=== PATIENT | female | born 1960 | race Caucasian/White ===

== ENCOUNTER 2017-12-03 12:30 | Observation (INO) | payer SELFPAY ==
[~2017-12-03] VITALS: Ht 180.3 cm; Wt 76.0 kg
[~2017-12-03 12:30] MED LIST: IRONCAP2 PO; ORTH0.35 PO; VENL75TA91 PO
[2017-12-03 12:53] VITALS: BP 105/59; PULSE 107; RESP 18; TEMP 98.8; O2SAT 95
--- NOTE | 2017-12-03 13:36 | RADRPT ---
EXAM DATE: 12/03/2017 1:29 PM EDT AGE/SEX: 57 years / Female INDICATIONS: Congestion and coughing. CLINICAL DATA: This is the patient's initial encounter. Patient reports that signs and symptoms have been present for 4 - 6 days and indicates a pain score of 0/10. MEDICAL/SURGICAL HISTORY: None. None. COMPARISON: No prior [facility] exams available for comparison. FINDINGS: There is infiltrate in the right lower lobe. There is no significant associated effusion. Left lung i s grossly clear. There is baseline hyperinflation consistent with COPD. Mild apical pleural thickenin g. Cardiac contours are grossly satisfactory. Thoracic skeleton is intact. CONCLUSION: Right lower lobe infiltrate Electronically signed by: Damian Vigil MD 12/03/2017 1:35 PM EDT
[2017-12-03 13:40] LABS: AUTOMATED NEUTROPHIL # 6.2 TH/MM3 (1.8-7.7); BASOPHIL % 0.4 % (0.0-2.0); EOSINOPHIL % 0.3 % (0.0-4.0); HEMATOCRIT 46.4 % (35.0-46.0); HEMOGLOBIN 15.4 GM/DL (11.6-15.3); LYMPH % 10.9 % (9.0-44.0); LYMPHOCYTE # 0.9 TH/MM3 (1.0-4.8); MEAN CELL VOLUME 95.5 FL (80.0-100.0); MEAN CORPUSCULAR HEMOGLOBIN 31.7 PG (27.0-34.0); MEAN CORPUSCULAR HGB CONC 33.2 % (32.0-36.0); MEAN PLATELET VOLUME 9.2 FL (7.0-11.0); MONO % 11.7 % (0.0-8.0); MONOCYTE # 0.9 TH/MM3 (0-0.9); NEUT % 76.7 % (16.0-70.0); PLATELET COUNT 221 TH/MM3 (150-450); RED BLOOD COUNT 4.86 MIL/MM3 (4.00-5.30); RED CELL DISTRIBUTION WIDTH 13.6 % (11.6-17.2); WHITE BLOOD COUNT 8.1 TH/MM3 (4.0-11.0)
[2017-12-03 13:47] LABS: BICARBONATE 30.2 MEQ/L (21.0-32.0); CALCIUM 9.5 MG/DL (8.5-10.1); CREATININE 1.08 MG/DL (0.50-1.00)
[2017-12-03] MEDS ORDERED: LEVOFLOXACIN 500 MG PREMIX INJ 100 ML IV ONE (16:45)
[2017-12-03] MEDS ORDERED: SODIUM CHLOR 0.9% 1000 ML INJ 1,000 ML IV ONE ×3 (16:45→18:30)
[2017-12-03] MEDS ORDERED: RESP: ALBUTEROL 2.5 MG/IPRATROPIUM 0.5 MG NEB (SCH) NEB ONE (16:45)
--- NOTE | 2017-12-03 16:46 | PD ---
HPI Chief Complaint: Cold / Flu Symptoms Time Seen by Provider: 16:30 Travel History International Travel<30 days: No Contact w/Intl Traveler<30days: No Traveled to known affect area: No History of Present Illness HPI 57-year-old female presents to the emergency room for evaluation of mildly productive cough for the past 4 days. Patient states at onset of symptoms she felt feverish and had body aches. She thought she was getting the flu. The symptoms kind of resolved but the cough has persisted. Patient has associated pleuritic chest pain. She also reports bilateral ear pain especially with swallowing. She has been taking multiple [id number] medications with mild to moderate relief in symptoms. No objective fevers. She has history of ulcerative colitis but denies any other significant medical history. She denies history of PE or DVT. PFSH Past Medical History Anemia: Yes Depression: Yes Cancer: Yes (SKIN CA REMOVAL NECK) Cardiovascular Problems: Yes Cerebrovascular Accident: No Diminished Hearing: No Endocrine: No Gastrointestinal Disorders: Yes (HX OF ULCERATIVE COLITIS) Genitourinary: No Immune Disorder: No Musculoskeletal: Yes (MUSCLE SPASMS) Neurologic: Yes Reproductive: Yes (UTERINE FIBROIDS) Respiratory: No Immunizations Current: No PNEUMOCCOCAL Vaccine (Year): 2 ?: Not : 1 Para: 1 Miscarriage: 0 : 0 Dilation and Curettage (D&C): Yes Past Surgical History Section: Yes Gynecologic Surgery: Yes (, CERVICAL POLYPS, D & C) Other Surgery: Yes Social History Alcohol Use: Yes (OCC) Tobacco Use: Yes (1/2PPD) Substance Use: No Allergies-Medications (Allergen,Severity, Reaction): Coded Allergies: morphine (Unverified Allergy, Intermediate, ITCHING, REDNESS, HIVES, ) Reported Meds & Prescriptions Reported Meds & Active Scripts Active Review of Systems Except as stated in HPI: all other systems reviewed are Neg Physical Exam Narrative GENERAL: Well-nourished, well-developed female no acute distress. Afebrile. Ambulatory. SKIN: Focused skin assessment warm/dry. HEAD: Normocephalic. EYES: No scleral icterus. No injection or drainage. NECK: Supple, trachea midline. No JVD or lymphadenopathy. CARDIOVASCULAR: Regular rate and rhythm without murmurs, gallops, or rubs. RESPIRATORY: Breath sounds equal bilaterally. No accessory muscle use. Bilateral expiratory wheezes. Rhonchi of the right lower lobe. Data Data Last Documented VS Vital Signs Date Time Temp Pulse Resp B/P (MAP) Pulse Ox O2 Delivery O2 Flow Rate FiO2 12/03/17 18:22 104 21 97 12/03/17 16:03 Room Air 12/03/17 12:53 98.8 105/59 (74) Orders Orders Complete Blood Count With Diff (12/03/17 12:55) Basic Metabolic Panel (Bmp) (12/03/17 12:55) Chest, Pa & Lat (12/03/17 12:55) Lactic Acid (12/03/17 12:55) Sodium Chlor 0.9% 1000 Ml Inj (Ns 1000 M (12/03/17 16:45) Levofloxacin 500 Mg Premix Inj (Levaquin (12/03/17 16:45) Albuterol-Ipratropium Neb (Duoneb Neb) (12/03/17 16:45) Sodium Chlor 0.9% 1000 Ml Inj (Ns 1000 M (12/03/17 18:30) Sodium Chlor 0.9% 1000 Ml Inj (Ns 1000 M (12/03/17 18:30) Methylprednisolone So Succ Inj (Solumedr (12/03/17 18:30) Admit Order (Ed Use Only) (12/03/17 ) Real Estate Legal Secretary / Telemetry SAMANTHA.Q8H (12/03/17 19:38) Vital Signs (Adult) Q4H (12/03/17 19:38) Activity Oob With Assistance (12/03/17 19:38) Albuterol-Ipratropium Neb (Duoneb Neb) (12/03/17 19:45) Budeson-Formot 160-4.5 Mcg Inh (Symbicor (12/03/17 21:00) Guaifenesin Er (Mucinex Er) (12/03/17 21:00) Levofloxacin 750 Mg Premix Inj (Levaquin (12/04/17 21:00) Methylprednisolone So Succ Inj (Solumedr (12/04/17 00:00) Place In Observation (12/03/17 ) Vital Signs (Adult) Q4H (12/03/17 19:41) Activity Oob Ad Gissell (12/03/17 19:41) Intake + Output SAMANTHA.QSHIFT (12/03/17 19:41) Diet Regular Basic (12/04/17 Breakfast) Sodium Chloride 0.9% Flush (Ns Flush) (12/03/17 19:45) Sodium Chloride 0.9% Flush (Ns Flush) (12/03/17 21:00) Metoclopramide Inj (Reglan Inj) (12/03/17 19:45) Comprehensive Metabolic Panel (12/04/17 06:00) Complete Blood Count With Diff (12/04/17 06:00) Scd Bilateral/Knee High SAMANTHA.BID (12/03/17 19:41) Eugenio Bilateral/Knee High SAMANTHA.QSHIFT (12/03/17 19:43) Acetaminophen (Tylenol) (12/03/17 19:45) Acetamin-Hydrocod 325-5 Mg ([place] 5-325 (12/03/17 19:45) Acetamin-Hydrocod 325-10 Mg ([place] 10-32 (12/03/17 19:45) Docusate Sodium-Senna (Paula-Colace) (12/03/17 21:00) Magnesium Hydroxide Liq (Milk Of Magnesi (12/03/17 19:45) Sennosides (Senokot) (12/03/17 19:45) Bisacodyl Supp (Dulcolax Supp) (12/03/17 19:45) Lactulose Liq (Lactulose Liq) (12/03/17 19:45) Labs Laboratory Tests Test 12/03/17 13:13 White Blood Count 8.1 TH/MM3 Red Blood Count 4.86 MIL/MM3 Hemoglobin 15.4 GM/DL Hematocrit 46.4 % Mean Corpuscular Volume 95.5 FL Mean Corpuscular Hemoglobin 31.7 PG Mean Corpuscular Hemoglobin Concent 33.2 % Red Cell Distribution Width 13.6 % Platelet Count 221 TH/MM3 Mean Platelet Volume 9.2 FL Neutrophils (%) (Auto) 76.7 % Lymphocytes (%) (Auto) 10.9 % Monocytes (%) (Auto) 11.7 % Eosinophils (%) (Auto) 0.3 % Basophils (%) (Auto) 0.4 % Neutrophils # (Auto) 6.2 TH/MM3 Lymphocytes # (Auto) 0.9 TH/MM3 Monocytes # (Auto) 0.9 TH/MM3 Eosinophils # (Auto) 0.0 TH/MM3 Basophils # (Auto) 0.0 TH/MM3 CBC Comment DIFF FINAL Differential Comment Blood Urea Nitrogen 18 MG/DL Creatinine 1.08 MG/DL Random Glucose 100 MG/DL Calcium Level 9.5 MG/DL Sodium Level 140 MEQ/L Potassium Level 4.0 MEQ/L Chloride Level 102 MEQ/L Carbon Dioxide Level 30.2 MEQ/L Anion Gap 8 MEQ/L Estimat Glomerular Filtration Rate 53 ML/MIN Lactic Acid Level 1.2 mmol/L [facility] Medical Decision Making Medical Screen Exam Complete: Yes Emergency Medical Condition: Yes Medical Record Reviewed: Yes Differential Diagnosis Pneumonia, upper respiratory infection, influenza Narrative Course 57-year-old female presents to the emergency room for evaluation of mildly productive cough for the past 4 days. At onset she felt feverish with body aches but the symptoms have subsided. Physical exam is reassuring. Patient resting comfortably in bed. She is slightly tachycardic in the low 100s. Pulse ox is 96% on room air. She is a smoker but has not smoked in the past 4 days. Patient has bilateral wheezes with rhonchi in the right lower lung field. CBC is unremarkable. CMP shows mild elevation of creatinine of 1.08. Lactic acid is 1.2. Chest x-ray shows right lower lobe infiltrate. Patient was given 1 L of fluids, IV Levaquin, and 2 duo nebs in the emergency room. She reports feeling shaky after the DuoNeb's. Lung exam reveals significant improvement in the wheezing. Patient remained tachycardic after the fluids. She was then given 2 more liters of fluids and Solu-Medrol. Patient will be admitted for right lower lobe pneumonia with sepsis. Sepsis Criteria SIRS Criteria (2 or more): Heart rate over 90, RR > 20 or PaCO2 < 32 Sepsis Criteria (SIRS+source): Infect source susp/known Diagnosis Primary Impression: Right lower lobe pneumonia Qualified Codes: J18.1 - Lobar pneumonia, unspecified organism Admitting Information Admitting Physician Requests: Admit Condition: Stable Aditi Martinez December 03, 2017 16:46
[2017-12-03] MEDS ORDERED: LEVA500T33 PO (17:56)
[2017-12-03] MEDS ORDERED: VENTAER INH (17:57)
[2017-12-03] MEDS ORDERED: BENZ100 PO (17:57)
[2017-12-03] MEDS ORDERED: methylPREDNISolone SOD SUCC 125 MG/2 ML VIAL IV PUSH ONE (18:30)
--- NOTE | 2017-12-03 19:44 | HHI.HP ---
[facility] No Primary Care Physician Admission Diagnosis Right Lung PNA; Dyspnea Diagnoses: (1) PNA (pneumonia) Diagnosis: Principal (2) COPD (chronic obstructive pulmonary disease) Diagnosis: Principal (3) Tobacco abuse Diagnosis: Principal Travel History International Travel<30 Days: No Contact w/Intl Traveler <30 Da: No Traveled to Known Affected Are: No History of Present Illness This is a 57-year-old female with a PMH of Ulcerative Colitis and Tobacco Abuse who presented to ER with complaints of SOB, wheezing and cough x4 days. Notes subjective fever/chills at home but did not take her temp. Has not been on any antibiotics or treatment for symptoms. States she's been taking cough syrup w/ no improvement. Notes productive cough w/ yellow-colored sputum. Today w/ worsening SOB and wheezing. On arrival, BP 105/59, HR 107, O2 sat 95% on RA, Afebrile. CBC unremarkable. Creatinine 1.08, previously 0.67 on 08/29/2014. CXR w/ RLL infiltrate. S/p Levaquin, Solu-Medrol and DuoNeb w/ some improvement however persistent SOB and wheezing. Review of Systems Except as stated in HPI: all other systems reviewed are Neg ROS: 14 point review of systems otherwise negative. Past Family Social History Past Medical History PMH: Ulcerative Colitis and Tobacco Abuse Past Surgical History PAST SURGICAL HISTORY: , D&C Allergies: Coded Allergies: morphine (Unverified Allergy, Intermediate, ITCHING, REDNESS, HIVES, ) Family History PAST FAMILY HISTORY: Reviewed. No h/o DM or CAD Social History PAST SOCIAL HISTORY: Occasional alcohol. Smokes 1/2ppd. H/o Cocaine Abuse. Physical Exam Vital Signs Vital Signs Date Time Temp Pulse Resp B/P (MAP) Pulse Ox O2 Delivery O2 Flow Rate FiO2 12/03/17 18:22 104 21 97 12/03/17 16:03 96 Room Air 12/03/17 12:53 98.8 107 18 105/59 (74) 95 Physical Exam PE: GENERAL: Pleasant middle-aged white female in no acute distress. Some dyspnea w / speech. HEENT: PERRLA, EOMI. No scleral icterus or conjunctival pallor. No lid lag or facial droop. CARDIOVASCULAR: Regular rate and rhythm. No obvious murmurs to auscultation. No chest tenderness to palpation. RESPIRATORY: No obvious rhonchi, occasional wheezing. Clear to auscultation. Breath sounds equal bilaterally. GASTROINTESTINAL: Abdomen soft, non-tender, nondistended. BS normal. MUSCULOSKELETAL: Extremities without clubbing, cyanosis, or edema. No obvious deformities. NEUROLOGICAL: Awake, alert and oriented x4. No focal neurologic deficits. Moving both upper and lower extremities spontaneously. Laboratory Laboratory Tests Test 12/03/17 13:13 White Blood Count 8.1 Red Blood Count 4.86 Hemoglobin 15.4 Hematocrit 46.4 Mean Corpuscular Volume 95.5 Mean Corpuscular Hemoglobin 31.7 Mean Corpuscular Hemoglobin Concent 33.2 Red Cell Distribution Width 13.6 Platelet Count 221 Mean Platelet Volume 9.2 Neutrophils (%) (Auto) 76.7 Lymphocytes (%) (Auto) 10.9 Monocytes (%) (Auto) 11.7 Eosinophils (%) (Auto) 0.3 Basophils (%) (Auto) 0.4 Neutrophils # (Auto) 6.2 Lymphocytes # (Auto) 0.9 Monocytes # (Auto) 0.9 Eosinophils # (Auto) 0.0 Basophils # (Auto) 0.0 CBC Comment DIFF FINAL Differential Comment Blood Urea Nitrogen 18 Creatinine 1.08 Random Glucose 100 Calcium Level 9.5 Sodium Level 140 Potassium Level 4.0 Chloride Level 102 Carbon Dioxide Level 30.2 Anion Gap 8 Estimat Glomerular Filtration Rate 53 Lactic Acid Level 1.2 Result Diagram: 12/03/17 1313 12/03/17 1313 Caprini VTE Risk Assessment Caprini VTE Risk Assessment: No/Low Risk (score <= 1) Caprini Risk Assessment Model Point Value = 1 Point Value = 2 Point Value = 3 Point Value = 5 Age 41-60 Minor surgery BMI > 25 kg/m2 Swollen legs Varicose veins or History of unexplained or recurrent spontaneous Oral contraceptives or hormone replacement Sepsis (< 1 month) Serious lung disease, including pneumonia (< 1 month) Abnormal pulmonary function Acute myocardial infarction Congestive heart failure (< 1 month) History of inflammatory bowel disease Medical patient at bed rest Age 61-74 Arthroscopic surgery Major open surgery (> 45 min) Laparoscopic surgery (> 45 min) Malignancy Confined to bed (> 72 hours) Immobilizing plaster cast Central venous access Age >= 75 History of VTE Family history of VTE Factor V Leiden Prothrombin [id number] Lupus anticoagulant Anticardiolipin antibodies Elevated serum homocysteine Heparin-induced thrombocytopenia Other congenital or acquired thrombophilia Stroke (< 1 month) Elective arthroplasty Hip, pelvis, or leg fracture Acute spinal cord injury (< 1 month) Prophylaxis Regimen Total Risk Factor Score Risk Level Prophylaxis Regimen 0-1 Low Early ambulation 2 Moderate Order ONE of the following: *Sequential Compression Device (SCD) *Heparin 5000 units SQ BID 3-4 Higher Order ONE of the following medications: *Heparin 5000 units SQ TID *Enoxaparin/Lovenox 40 mg SQ daily (WT < 150 kg, CrCl > 30 mL/min) *Enoxaparin/Lovenox 30 mg SQ daily (WT < 150 kg, CrCl > 10-29 mL/min) *Enoxaparin/Lovenox 30 mg SQ BID (WT < 150 kg, CrCl > 30 mL/min) AND/OR *Sequential Compression Device (SCD) 5 or more Highest Order ONE of the following medications: *Heparin 5000 units SQ TID (Preferred with Epidurals) *Enoxaparin/Lovenox 40 mg SQ daily (WT < 150 kg, CrCl > 30 mL/min) *Enoxaparin/Lovenox 30 mg SQ daily (WT < 150 kg, CrCl > 10-29 mL/min) *Enoxaparin/Lovenox 30 mg SQ BID (WT < 150 kg, CrCl > 30 mL/min) AND *Sequential Compression Device (SCD) Assessment and Plan Problem List: (1) PNA (pneumonia) ICD Code: J18.9 - Pneumonia, unspecified organism (2) COPD (chronic obstructive pulmonary disease) ICD Code: J44.9 - Chronic obstructive pulmonary disease, unspecified (3) Tobacco abuse ICD Code: Z72.0 - Tobacco use Assessment and Plan A/P: 1. PNA: SOB/productive cough x4 days, CXR w/ RLL infiltrate, images reviewed by me. Afebrile, no leukocytosis. S/p Levaquin in ER, continue w/ IV Abx, DuoNeb prn 2. COPD: H/o long-term tobacco abuse, +hyperinflation on review of CXR, + wheezing on exam, will continue w/ Solu-Medrol, DuoNeb, Symbicort, Mucinex. Monitor O2. 3. Tobacco Abuse: Pt counselled. NicoDerm prn if needed. 4. DVT Prophylaxis: SCD/Teds 5. Social work for d/c planning as needed. 6. Case discussed w/ ER physician at length, labs/records/imaging reviewed by me. Ida Polk MD December 03, 2017 19:44
[2017-12-03] MEDS ORDERED: LACTULOSE SYRUP 20 GM/30 ML CUP PO PRN (19:45)
[2017-12-03] MEDS ORDERED: METOCLOPRAMIDE HCL 10 MG/2 ML VIAL IV PUSH PRN (19:45)
[2017-12-03] MEDS ORDERED: SODIUM CHLORIDE 0.9% FLUSH 10 ML FLUSH IV FLUSH PRN (19:45)
[2017-12-03] MEDS ORDERED: RESP: ALBUTEROL 2.5 MG/IPRATROPIUM 0.5 MG NEB (PRN) NEB (19:45)
[2017-12-03] MEDS ORDERED: BISACODYL 10 MG SUPP RECTAL PRN (19:45)
[2017-12-03] MEDS ORDERED: MAGNESIUM HYDROXIDE SUSP 30 ML CUP PO PRN (19:45)
[2017-12-03] MEDS ORDERED: SENNOSIDES 8.6 MG TAB PO PRN (19:45)
--- NOTE | 2017-12-03 19:58 | PD ---
Data Data Last Documented VS Vital Signs Date Time Temp Pulse Resp B/P (MAP) Pulse Ox O2 Delivery O2 Flow Rate FiO2 12/03/17 18:22 104 21 97 12/03/17 16:03 Room Air 12/03/17 12:53 98.8 105/59 (74) Orders Orders Complete Blood Count With Diff (12/03/17 12:55) Basic Metabolic Panel (Bmp) (12/03/17 12:55) Chest, Pa & Lat (12/03/17 12:55) Lactic Acid (12/03/17 12:55) Sodium Chlor 0.9% 1000 Ml Inj (Ns 1000 M (12/03/17 16:45) Levofloxacin 500 Mg Premix Inj (Levaquin (12/03/17 16:45) Albuterol-Ipratropium Neb (Duoneb Neb) (12/03/17 16:45) Sodium Chlor 0.9% 1000 Ml Inj (Ns 1000 M (12/03/17 18:30) Sodium Chlor 0.9% 1000 Ml Inj (Ns 1000 M (12/03/17 18:30) Methylprednisolone So Succ Inj (Solumedr (12/03/17 18:30) Admit Order (Ed Use Only) (12/03/17 ) Automotive Worker Foreman / Telemetry SAMANTHA.Q8H (12/03/17 19:38) Vital Signs (Adult) Q4H (12/03/17 19:38) Activity Oob With Assistance (12/03/17 19:38) Albuterol-Ipratropium Neb (Duoneb Neb) (12/03/17 19:45) [place]-Kat[place]ot 160-4.5 Mcg Inh (Symbicor (12/03/17 21:00) Guaifenesin Er (Mucinex Er) (12/03/17 21:00) Levofloxacin 750 Mg Premix Inj (Levaquin (12/04/17 21:00) Methylprednisolone So Succ Inj (Solumedr (12/04/17 00:00) Place In Observation (12/03/17 ) Vital Signs (Adult) Q4H (12/03/17 19:41) Activity Oob Ad Gissell (12/03/17 19:41) Intake + Output SAMANTHA.QSHIFT (12/03/17 19:41) Diet Regular Basic (12/04/17 Breakfast) Sodium Chloride 0.9% Flush (Ns Flush) (12/03/17 19:45) Sodium Chloride 0.9% Flush (Ns Flush) (12/03/17 21:00) Metoclopramide Inj (Reglan Inj) (12/03/17 19:45) Comprehensive Metabolic Panel (12/04/17 06:00) Complete Blood Count With Diff (12/04/17 06:00) Scd Bilateral/Knee High SAMANTHA.BID (12/03/17 19:41) Eugenio Bilateral/Knee High SAMANTHA.QSHIFT (12/03/17 19:43) Acetaminophen (Tylenol) (12/03/17 19:45) Acetamin-Hydrocod 325-5 Mg ([place] 5-325 (12/03/17 19:45) Acetamin-Hydrocod 325-10 Mg ([place] 10-32 (12/03/17 19:45) Docusate Sodium-Senna (Paula-Colace) (12/03/17 21:00) Magnesium Hydroxide Liq (Milk Of Magnesi (12/03/17 19:45) Sennosides (Senokot) (12/03/17 19:45) Bisacodyl Supp (Dulcolax Supp) (12/03/17 19:45) Lactulose Liq (Lactulose Liq) (12/03/17 19:45) Labs Laboratory Tests Test 12/03/17 13:13 White Blood Count 8.1 TH/MM3 Red Blood Count 4.86 MIL/MM3 Hemoglobin 15.4 GM/DL Hematocrit 46.4 % Mean Corpuscular Volume 95.5 FL Mean Corpuscular Hemoglobin 31.7 PG Mean Corpuscular Hemoglobin Concent 33.2 % Red Cell Distribution Width 13.6 % Platelet Count 221 TH/MM3 Mean Platelet Volume 9.2 FL Neutrophils (%) (Auto) 76.7 % Lymphocytes (%) (Auto) 10.9 % Monocytes (%) (Auto) 11.7 % Eosinophils (%) (Auto) 0.3 % Basophils (%) (Auto) 0.4 % Neutrophils # (Auto) 6.2 TH/MM3 Lymphocytes # (Auto) 0.9 TH/MM3 Monocytes # (Auto) 0.9 TH/MM3 Eosinophils # (Auto) 0.0 TH/MM3 Basophils # (Auto) 0.0 TH/MM3 CBC Comment DIFF FINAL Differential Comment Blood Urea Nitrogen 18 MG/DL Creatinine 1.08 MG/DL Random Glucose 100 MG/DL Calcium Level 9.5 MG/DL Sodium Level 140 MEQ/L Potassium Level 4.0 MEQ/L Chloride Level 102 MEQ/L Carbon Dioxide Level 30.2 MEQ/L Anion Gap 8 MEQ/L Estimat Glomerular Filtration Rate 53 ML/MIN Lactic Acid Level 1.2 mmol/L [facility] Medical Record Reviewed: Yes Supervised Visit with GENIE: Yes Narrative Course I, Dr. Tiwari, have reviewed the advance practice practitioner's documentation and am in agreement, met with the patient face to face, made the diagnosis, and the medical decision making was done by me. *My assessment and Findings: CBC & BMP Diagram 12/03/17 13:13 Calcium Level 9.5 Last Impressions Chest X-Ray 12/03/17 1255 Signed Impressions: CONCLUSION: Right lower lobe infiltrate Pt with R lung pna and tachycardia. Admission for IV abx and oxygen as needed. Mild tachypnea observed right ED stay. The patient is able speak sentences. She was able to ambulate to the bathroom and back. She received 3 L of saline and the pulse remained at about 105. Pt also received duonebs which conferred mild benefit. Discussed with Dr. Polk Diagnosis Primary Impression: Right lower lobe pneumonia Qualified Codes: J18.1 - Lobar pneumonia, unspecified organism Admitting Information Admitting Physician Requests: Observation Patient Instructions: General Instructions, Benzonatate (By mouth), Albuterol ( By breathing), Levofloxacin (By mouth) Departure Forms: Tests/Procedures Condition: Stable Germán Tiwari MD December 03, 2017 19:58
[2017-12-03] MEDS: SODIUM CHLORIDE 0.9% FLUSH 10 ML FLUSH IV FLUSH SCH (21:00)
[2017-12-03] MEDS: ACETAMINOPHEN/HYDROcodone 325 MG/5 MG TAB PO PRN (22:14)
[2017-12-03 22:22] VITALS: BP 123/74; PULSE 108; RESP 16; TEMP 98.5; O2SAT 91
[2017-12-03] MEDS: BUDESONIDE-FORMOTEROL 160/4.5 MCG INHALER INH SCH (23:09)
[2017-12-03] MEDS: DOCUSATE SODIUM 50 MG/SENNA 8.6 MG TAB PO SCH (23:10)
[2017-12-03] MEDS: guaiFENesin E.R. 600 MG TAB PO SCH (23:10)
[2017-12-03] MEDS: methylPREDNISolone SOD SUCC 40 MG/1 ML VIAL IV PUSH SCH (23:11)
[2017-12-04] VITALS (13 sets, daily range): BP systolic 109–127; BP diastolic 58–68; PULSE 76–104; RESP 16–18; TEMP 97.5–98.3; O2SAT 90–96
[2017-12-04] MEDS: ACETAMINOPHEN/HYDROcodone 325 MG/5 MG TAB PO PRN (04:55)
[2017-12-04] MEDS: methylPREDNISolone SOD SUCC 40 MG/1 ML VIAL IV PUSH SCH ×3 (04:55→18:29)
[2017-12-04 08:56] LABS: AUTOMATED NEUTROPHIL # 2.4 TH/MM3 (1.8-7.7); BASOPHIL % 0.3 % (0.0-2.0); EOSINOPHIL % 0.1 % (0.0-4.0); HEMATOCRIT 39.2 % (35.0-46.0); HEMOGLOBIN 13.3 GM/DL (11.6-15.3); LYMPH % 17.5 % (9.0-44.0); LYMPHOCYTE # 0.6 TH/MM3 (1.0-4.8); MEAN CELL VOLUME 94.2 FL (80.0-100.0); MEAN CORPUSCULAR HEMOGLOBIN 31.9 PG (27.0-34.0); MEAN CORPUSCULAR HGB CONC 33.9 % (32.0-36.0); MEAN PLATELET VOLUME 8.8 FL (7.0-11.0); MONO % 10.7 % (0.0-8.0); MONOCYTE # 0.4 TH/MM3 (0-0.9); NEUT % 71.4 % (16.0-70.0); PLATELET COUNT 201 TH/MM3 (150-450); RED BLOOD COUNT 4.16 MIL/MM3 (4.00-5.30); RED CELL DISTRIBUTION WIDTH 13.6 % (11.6-17.2); WHITE BLOOD COUNT 3.4 TH/MM3 (4.0-11.0)
[2017-12-04] MEDS: DOCUSATE SODIUM 50 MG/SENNA 8.6 MG TAB PO SCH ×2 (09:00→20:38)
[2017-12-04 09:18] LABS: ALBUMIN 2.6 GM/DL (3.4-5.0); AST (GOT) 44 U/L (15-37); BICARBONATE 24.2 MEQ/L (21.0-32.0); BLOOD UREA NITROGEN 12 MG/DL (7-18); CALCIUM 8.8 MG/DL (8.5-10.1); CHLORIDE 110 MEQ/L (98-107); CREATININE 0.51 MG/DL (0.50-1.00); GLOMERULAR FILTRATION RATE 125 ML/MIN (>89); GLUCOSE,RANDOM 139 MG/DL (74-106); SODIUM (NA) 142 MEQ/L (136-145)
[2017-12-04 09:21] LABS: ALT (GPT) 40 U/L (10-53)
[2017-12-04 09:27] LABS: ALKALINE PHOSPHATASE 87 U/L (45-117); TOTAL BILIRUBIN ADULT 0.3 MG/DL (0.2-1.0); TOTAL PROTEIN 6.3 GM/DL (6.4-8.2)
[2017-12-04] MEDS: guaiFENesin E.R. 600 MG TAB PO SCH ×2 (09:46→20:38)
[2017-12-04] MEDS: ACETAMINOPHEN 325 MG TAB PO PRN (09:46)
[2017-12-04] MEDS: BUDESONIDE-FORMOTEROL 160/4.5 MCG INHALER INH SCH ×2 (09:47→20:37)
[2017-12-04] MEDS: SODIUM CHLORIDE 0.9% FLUSH 10 ML FLUSH IV FLUSH SCH ×2 (09:47→20:38)
[2017-12-04] MEDS ORDERED: ACETAMIN 325 MG/BUTALBITAL 50 MG/CAFFEINE 40 MG TAB PO ONE (11:00)
[2017-12-04] MEDS ORDERED: RESP: ALBUTEROL 1.25 MG/3 ML NEB (PRN) NEB (11:00)
[2017-12-04] MEDS: NICOTINE 14 MG/24 HR PATCH T-DERMAL SCH (12:33)
[2017-12-04] MEDS: RESP: ALBUTEROL 2.5 MG/IPRATROPIUM 0.5 MG NEB (SCH) NEB ×3 (12:58→19:40)
--- NOTE | 2017-12-04 13:57 | HHI.PR ---
Subjective Remarks Follow-up on patient with pneumonia. Patient seen and examined. Patient states her breathing is a little bit better today. She reports cough does have difficulty expelling phlegm secondary to thick congestion. She denies any complaints of fever chills. She denies any complaints of chest pain. She does have significant shortness of breath worsened with even minimal exertion. She denies any nausea, vomiting or abdominal pain. She denies any urinary difficulties, diarrhea or constipation. Objective Vitals Vital Signs Date Time Temp Pulse Resp B/P (MAP) Pulse Ox O2 Delivery O2 Flow Rate FiO2 12/04/17 12:45 89 12/04/17 12:00 97.7 90 18 113/68 (83) 91 12/04/17 08:53 96 Nasal Cannula 2.00 12/04/17 08:43 76 12/04/17 08:00 98.2 85 18 116/58 (77) 92 12/04/17 05:57 18 12/04/17 04:20 97.5 90 16 109/67 (81) 90 12/04/17 03:29 87 12/04/17 00:42 100 12/03/17 22:22 98.5 108 16 123/74 (90) 91 12/03/17 18:22 104 21 97 12/03/17 16:03 96 Room Air I/O 12/03/17 12/03/17 12/03/17 12/04/17 12/04/17 12/04/17 07:00 15:00 23:00 07:00 15:00 23:00 Intake Total 2100 ml 1000 ml Balance 2100 ml 1000 ml Intake IV Total 2100 ml 1000 ml Result Diagram: 12/04/17 0810 12/04/17 0810 Imaging Last Impressions Chest X-Ray 12/03/17 1255 Signed Impressions: CONCLUSION: Right lower lobe infiltrate Objective Remarks GENERAL: This is a well-developed well-nourished pleasant middle-aged white female in no acute distress. Awake and alert. SKIN: Warm and dry. No generalized rash. HEENT: NC/AT. PERRLA, EOMI. No scleral icterus or conjunctival pallor. CARDIOVASCULAR: Regular rate and rhythm. No obvious murmurs to auscultation. No chest tenderness to palpation. RESPIRATORY: Nonlabored. Tight with little air entry. Diffuse wheezing noted. GASTROINTESTINAL: Abdomen soft, non-tender, nondistended. BS normal. No guarding. MUSCULOSKELETAL: Extremities without clubbing, cyanosis, or edema. No obvious deformities. NEUROLOGICAL: Awake, alert and oriented x4. Moving both upper and lower extremities spontaneously. No focal neurologic deficits. Normal speech. PSYCHIATRIC: Appropriate mood and affect. Normal judgment and insight. Procedures None A/P Problem List: (1) PNA (pneumonia) ICD Code: J18.9 - Pneumonia, unspecified organism (2) COPD (chronic obstructive pulmonary disease) ICD Code: J44.9 - Chronic obstructive pulmonary disease, unspecified (3) Tobacco abuse ICD Code: Z72.0 - Tobacco use Assessment and Plan 57-year-old female with a PMH of Ulcerative Colitis and Tobacco Abuse who presented to ER with complaints of SOB, wheezing and cough x4 days. Community-acquired pneumonia Chest x-ray reveals right lower lobe infiltrate and hyperinflation consistent with COPD IV Levaquin Continue Mucinex twice daily Incentive spirometry/Acapella/pulmonary toilet Continue to monitor respiratory status Supplemental oxygen as needed to maintain O2 sats above 92% COPD exacerbation IV Solu-Medrol Changed to scheduled duo nebs and albuterol as needed Symbicort 160/4.5mcg BID Supportive care ARPIT, suspect secondary to dehydration Resolved status post IV fluids Avoid nephrotoxic agents Continue to monitor kidney function as indicated Ongoing tobaccoism Lengthy discussion with patient regarding necessity of smoking cessation Nicotine patch ordered Hyperglycemia, secondary to IV Solu-Medrol No documented history of diabetes Accu-Cheks and insulin sliding scale Obtain hemoglobin A1c Ulcerative colitis Stable Continue to monitor DVT prophylaxis SCD/JAYLYN hose Discharge Planning Not ready for discharge. Discharge pending clinical improvement possibly in the next 24-48 hours. Dorene De Paz December 04, 2017 13:57
[2017-12-04] MEDS ORDERED: DEXTROSE 50% IN WATER 50 ML VIAL(D50) IV PUSH PRN (14:00)
[2017-12-04] MEDS ORDERED: GLUCAGON 1 MG/ML VIAL OTHER PRN (14:00)
[2017-12-04] MEDS: INSULIN ASPART SUPPLEMENTAL SCALE SQ SCH ×2 (18:28→20:55)
[2017-12-04] MEDS: PANTOPRAZOLE SOD 20 MG DELAYED RELEASE TAB PO SCH (20:38)
[2017-12-04] MEDS: ACETAMINOPHEN/HYDROcodone 325 MG/10 MG TAB PO PRN (20:39)
[2017-12-04] MEDS ORDERED: LEVOFLOXACIN 750 MG PREMIX INJ 150 ML IV SCH (21:00)
[2017-12-05] VITALS (12 sets, daily range): BP systolic 97–119; BP diastolic 55–72; PULSE 71–103; RESP 17–21; TEMP 97.5–98.2; O2SAT 92–94
[2017-12-05] MEDS: methylPREDNISolone SOD SUCC 40 MG/1 ML VIAL IV PUSH SCH ×4 (00:11→18:09)
[2017-12-05] MEDS: INSULIN ASPART SUPPLEMENTAL SCALE SQ SCH ×4 (08:00→21:00)
[2017-12-05] MEDS: RESP: ALBUTEROL 2.5 MG/IPRATROPIUM 0.5 MG NEB (SCH) NEB ×4 (08:11→19:35)
[2017-12-05] MEDS: SODIUM CHLORIDE 0.9% FLUSH 10 ML FLUSH IV FLUSH SCH ×2 (08:55→20:50)
[2017-12-05] MEDS: BUDESONIDE-FORMOTEROL 160/4.5 MCG INHALER INH SCH ×2 (08:55→20:51)
[2017-12-05] MEDS: ACETAMINOPHEN/HYDROcodone 325 MG/10 MG TAB PO PRN ×2 (08:56→14:06)
[2017-12-05] MEDS: DOCUSATE SODIUM 50 MG/SENNA 8.6 MG TAB PO SCH ×2 (08:56→20:50)
[2017-12-05] MEDS: REMOVE OLD PATCH T-DERMAL SCH (08:56)
[2017-12-05] MEDS: guaiFENesin E.R. 600 MG TAB PO SCH ×2 (08:56→20:50)
[2017-12-05] MEDS: NICOTINE 14 MG/24 HR PATCH T-DERMAL SCH (08:56)
--- NOTE | 2017-12-05 12:18 | HHI.PR ---
Subjective Remarks Follow-up on patient with pneumonia. Patient seen and examined. Patient complaining of headache. She states that she has chronic headaches and takes ibuprofen 3-4 times a day and has done so for several years. She denies any complaints of dizziness does report blurry vision. She reports some blood- tinged mucus after blowing her nose. She continues to be short of breath but is improved some from yesterday. She denies any complaints of fever or chills. She denies any complaints of chest pain. She denies any nausea, vomiting or abdominal pain. Objective Vitals Vital Signs Date Time Temp Pulse Resp B/P (MAP) Pulse Ox O2 Delivery O2 Flow Rate FiO2 12/05/17 08:11 94 Nasal Cannula 3.00 12/05/17 08:00 97.5 103 20 108/68 (81) 92 12/05/17 07:00 71 12/05/17 03:42 83 12/05/17 03:33 98.1 85 17 119/72 (88) 93 12/05/17 00:01 98.1 89 17 114/55 (74) 93 12/04/17 22:22 18 12/04/17 19:55 104 12/04/17 19:42 96 Nasal Cannula 3.00 12/04/17 19:32 98.3 88 18 127/65 (85) 91 12/04/17 16:47 85 12/04/17 15:48 97.8 82 18 114/68 (83) 93 12/04/17 12:45 89 I/O 12/04/17 12/04/17 12/04/17 12/05/17 12/05/17 12/05/17 07:00 15:00 23:00 07:00 15:00 23:00 Intake Total 1000 ml 150 ml 240 ml Balance 1000 ml 150 ml 240 ml Intake Oral 240 ml IV Total 1000 ml 150 ml # Voids 1 Result Diagram: 12/04/17 0810 12/04/17 0810 Imaging Last Impressions Chest X-Ray 12/03/17 1255 Signed Impressions: CONCLUSION: Right lower lobe infiltrate Objective Remarks GENERAL: This is a well-developed well-nourished pleasant middle-aged white female in no acute distress. Awake and alert. SKIN: Warm and dry. No generalized rash. HEENT: NC/AT. PERRLA, EOMI. No scleral icterus or conjunctival pallor. + Tenderness to palpation over the frontal and maxillary sinuses. CARDIOVASCULAR: Regular rate and rhythm. No obvious murmurs to auscultation. No chest tenderness to palpation. RESPIRATORY: Nonlabored. Fair air entry bilaterally. No wheezing noted. GASTROINTESTINAL: Abdomen soft, non-tender, nondistended. BS normal. No guarding. MUSCULOSKELETAL: Extremities without clubbing, cyanosis, or edema. No obvious deformities. NEUROLOGICAL: Awake, alert and oriented x4. Moving both upper and lower extremities spontaneously. No focal neurologic deficits. Normal speech. PSYCHIATRIC: Appropriate mood and affect. Normal judgment and insight. Procedures None A/P Problem List: (1) PNA (pneumonia) ICD Code: J18.9 - Pneumonia, unspecified organism (2) COPD (chronic obstructive pulmonary disease) ICD Code: J44.9 - Chronic obstructive pulmonary disease, unspecified (3) Tobacco abuse ICD Code: Z72.0 - Tobacco use Assessment and Plan 57-year-old female with a PMH of Ulcerative Colitis and Tobacco Abuse who presented to ER with complaints of SOB, wheezing and cough x4 days. Cephalgia Patient reports some associated blurry vision Obtain CT head ?sinusitis pain meds prn Community-acquired pneumonia Chest x-ray reveals right lower lobe infiltrate and hyperinflation consistent with COPD IV Levaquin -transition to oral Levaquin Continue Mucinex twice daily Incentive spirometry/Acapella/pulmonary toilet Continue to monitor respiratory status Supplemental oxygen as needed to maintain O2 sats above 92% -add humidification COPD exacerbation IV Solu-Medrol, will begin to taper to p.o.in am continue scheduled duo nebs and albuterol as needed Symbicort 160/4.5mcg BID Supportive care ARPIT, suspect secondary to dehydration Resolved status post IV fluids Avoid nephrotoxic agents Continue to monitor kidney function as indicated Ongoing tobaccoism Lengthy discussion with patient regarding necessity of smoking cessation Nicotine patch ordered Hyperglycemia, secondary to IV Solu-Medrol No documented history of diabetes Accu-Cheks and insulin sliding scale Obtain hemoglobin A1c Ulcerative colitis Stable Continue to monitor DVT prophylaxis SCD/JAYLYN hose Discharge Planning Not ready for discharge. Discharge pending clinical improvement. Still requiring supplemental oxygen to maintain O2 saturations. Likely discharge in a.m. Dorene De Paz December 05, 2017 12:18
--- NOTE | 2017-12-05 12:24 | RADRPT ---
EXAM DATE: 12/05/2017 12:21 PM EDT AGE/SEX: 57 years / Female INDICATIONS: Headache, worse with coughing. CLINICAL DATA: This is the patient's initial encounter. Patient reports that signs and symptoms have been present for 1 day and indicates a pain score of 4/10. MEDICAL/SURGICAL HISTORY: Cardiovascular disease. None. RADIATION DOSE: 48.68 CTDI (mGy) COMPARISON: No prior [place] exams available for comparison. TECHNIQUE: CT of the head without contrast. Using automated exposure control and adjustment of the mA and/or kV according to patient size, radiation dose was kept as low as reasonably achievable to ob tain optimal diagnostic quality images. FINDINGS: Cerebrum: The ventricles are normal for age. No evidence of midline shift, mass lesion, hemorrhage or acute infarction. No extraaxial fluid collections are seen. Posterior Fossa: The cerebellum and brainstem are intact. The 4th ventricle is midline. The cerebe llopontine angle is unremarkable. Extracranial: The visualized portion of the orbits is intact. Skull: The calvaria is intact. No evidence of skull fracture. CONCLUSION: 1. Unremarkable CT scan of the brain. Electronically signed by: Geraldo Stoddard MD 12/05/2017 12:23 PM EDT
[2017-12-05 13:22] LABS: HEMOGLOBIN A1C 4.9 % (4.3-6.0)
[2017-12-05] MEDS: IBUPROFEN 600 MG TAB PO PRN (18:09)
[2017-12-05] MEDS: LEVOFLOXACIN 750 MG TAB PO SCH (20:50)
[2017-12-05] MEDS: PANTOPRAZOLE SOD 20 MG DELAYED RELEASE TAB PO SCH (20:50)
[2017-12-06] VITALS (11 sets, daily range): BP systolic 110–129; BP diastolic 59–82; PULSE 68–102; RESP 17–18; TEMP 97.7–98.5; O2SAT 90–96
[2017-12-06] MEDS: methylPREDNISolone SOD SUCC 40 MG/1 ML VIAL IV PUSH SCH ×2 (01:19→06:50)
[2017-12-06] MEDS: RESP: ALBUTEROL 2.5 MG/IPRATROPIUM 0.5 MG NEB (SCH) NEB ×4 (07:29→20:19)
[2017-12-06] MEDS: INSULIN ASPART SUPPLEMENTAL SCALE SQ SCH (08:00)
[2017-12-06] MEDS: DOCUSATE SODIUM 50 MG/SENNA 8.6 MG TAB PO SCH ×2 (08:43→21:13)
[2017-12-06] MEDS: guaiFENesin E.R. 600 MG TAB PO SCH ×2 (08:43→21:13)
[2017-12-06] MEDS: IBUPROFEN 600 MG TAB PO PRN ×2 (08:43→17:00)
[2017-12-06] MEDS: NICOTINE 14 MG/24 HR PATCH T-DERMAL SCH (08:43)
[2017-12-06] MEDS: SODIUM CHLORIDE 0.9% FLUSH 10 ML FLUSH IV FLUSH SCH ×2 (08:44→21:15)
[2017-12-06] MEDS: REMOVE OLD PATCH T-DERMAL SCH (09:00)
[2017-12-06] MEDS ORDERED: NEBULIZER1 MI1 (09:37)
--- NOTE | 2017-12-06 09:37 | HHI.PR ---
Subjective Remarks Follow-up on patient with pneumonia. Patient seen and examined. Patient is feeling much better today. States she is hoping to be discharged home. Reports her breathing has improved. She continues to have a headache without dizziness or headache. She denies any complaints of shortness of breath. She denies any chest pain. She denies any fever chills. She denies any nausea, vomiting or abdominal pain. Objective Vitals Vital Signs Date Time Temp Pulse Resp B/P (MAP) Pulse Ox O2 Delivery O2 Flow Rate FiO2 12/06/17 08:09 97.8 77 18 123/75 (91) 90 12/06/17 07:30 96 Nasal Cannula 3.00 12/06/17 04:40 97.7 68 18 110/71 (84) 93 12/06/17 00:16 98.3 84 18 112/59 (76) 95 12/05/17 23:00 84 12/05/17 20:15 98.2 74 21 118/70 (86) 92 12/05/17 19:33 93 Nasal Cannula 3.00 12/05/17 17:57 87 12/05/17 15:16 98.1 80 18 116/70 (85) 92 12/05/17 12:15 97.9 84 18 97/64 (75) 94 I/O 12/05/17 12/05/17 12/05/17 12/06/17 12/06/17 12/06/17 06:59 14:59 22:59 06:59 14:59 22:59 Intake Total 240 ml 500 ml 240 ml Output Total 750 ml Balance 240 ml -250 ml 240 ml Intake Oral 240 ml 500 ml 240 ml Output Urine Total 750 ml # Voids 1 1 Result Diagram: 12/04/17 0810 12/04/17 0810 Imaging Last Impressions Head CT 12/05/17 0000 Signed Impressions: CONCLUSION: 1. Unremarkable CT scan of the brain. Chest X-Ray 12/03/17 1255 Signed Impressions: CONCLUSION: Right lower lobe infiltrate Objective Remarks GENERAL: This is a well-developed well-nourished pleasant middle-aged white female in no acute distress. Awake and alert. Sitting up in bed. On 3LNC. SKIN: Warm and dry. No generalized rash. HEENT: NC/AT. PERRLA, EOMI. No scleral icterus or conjunctival pallor. + Tenderness to palpation over the frontal and maxillary sinuses. CARDIOVASCULAR: Regular rate and rhythm. No obvious murmurs to auscultation. No chest tenderness to palpation. RESPIRATORY: Nonlabored. Fair air entry bilaterally. No wheezing noted. GASTROINTESTINAL: Abdomen soft, non-tender, nondistended. BS normal. No guarding. MUSCULOSKELETAL: Extremities without clubbing, cyanosis, or edema. No obvious deformities. NEUROLOGICAL: Awake, alert and oriented x4. Moving both upper and lower extremities spontaneously. No focal neurologic deficits. Normal speech. PSYCHIATRIC: Appropriate mood and affect. Normal judgment and insight. Procedures None A/P Problem List: (1) PNA (pneumonia) ICD Code: J18.9 - Pneumonia, unspecified organism (2) COPD (chronic obstructive pulmonary disease) ICD Code: J44.9 - Chronic obstructive pulmonary disease, unspecified (3) Tobacco abuse ICD Code: Z72.0 - Tobacco use Assessment and Plan 57-year-old female with a PMH of Ulcerative Colitis and Tobacco Abuse who presented to ER with complaints of SOB, wheezing and cough x4 days. Community-acquired pneumonia Chest x-ray reveals right lower lobe infiltrate and hyperinflation consistent with COPD Continue on po Levaquin Continue Mucinex twice daily Incentive spirometry/Acapella/pulmonary toilet Continue to monitor respiratory status Supplemental oxygen as needed to maintain O2 sats above 92% -add humidification Home oxygen walk test COPD exacerbation Continue on oral steroids continue scheduled duo nebs and albuterol as needed Symbicort 160/4.5mcg BID Supportive care We will consult case management to assist with possible home oxygen pending home oxygen walk test as well as nebulizer machine Cephalgia Chronic per patient report. Patient states she has daily headaches for which she takes ibuprofen 3 times a day and has done so for years CT of the head obtained without any acute intracranial findings No significant relief with Fioricet. Trial of Ultram. Recommend patient follow-up with PCP or neurology as outpatient for further evaluation pain meds prn ARPIT, suspect secondary to dehydration Resolved status post IV fluids Avoid nephrotoxic agents Continue to monitor kidney function as indicated Ongoing tobaccoism Lengthy discussion with patient regarding necessity of smoking cessation Nicotine patch ordered Hyperglycemia, secondary to IV Solu-Medrol No documented history of diabetes A1c 4.9 Blood sugars have been well controlled Discontinue Accu-Cheks and insulin sliding scale Ulcerative colitis Stable Continue to monitor DVT prophylaxis SCD/JAYLYN hose Discharge Planning Possible discharge later today pending home oxygen walk test Dorene De Paz December 06, 2017 09:37
[2017-12-06] MEDS ORDERED: traMADol HCL 50 MG TAB PO ONE (09:45)
[2017-12-06] MEDS ORDERED: HEPARIN SODIUM - SQ 10,000 UNITS/ML VIAL SQ ONE (09:45)
[2017-12-06] MEDS: BUDESONIDE-FORMOTEROL 160/4.5 MCG INHALER INH SCH ×2 (10:46→21:15)
[2017-12-06] MEDS: predniSONE 20 MG TAB PO SCH (10:46)
[2017-12-06] MEDS: PANTOPRAZOLE SOD 20 MG DELAYED RELEASE TAB PO SCH (21:13)
[2017-12-06] MEDS: LEVOFLOXACIN 750 MG TAB PO SCH (21:13)
[2017-12-06] MEDS: HEPARIN SODIUM - SQ 10,000 UNITS/ML VIAL SQ SCH (21:13)
[2017-12-06] MEDS: ACETAMINOPHEN/HYDROcodone 325 MG/5 MG TAB PO PRN (21:55)
[2017-12-07] VITALS (8 sets, daily range): BP systolic 98–139; BP diastolic 55–90; PULSE 66–95; RESP 17–20; TEMP 97.5–98.3; O2SAT 93–97
[2017-12-07] MEDS: RESP: ALBUTEROL 2.5 MG/IPRATROPIUM 0.5 MG NEB (SCH) NEB ×4 (08:02→20:14)
[2017-12-07] MEDS: NICOTINE 14 MG/24 HR PATCH T-DERMAL SCH (09:00)
[2017-12-07] MEDS: REMOVE OLD PATCH T-DERMAL SCH (09:00)
[2017-12-07] MEDS: ACETAMINOPHEN/HYDROcodone 325 MG/10 MG TAB PO PRN (10:00)
[2017-12-07] MEDS: BUDESONIDE-FORMOTEROL 160/4.5 MCG INHALER INH SCH ×2 (10:01→20:34)
[2017-12-07] MEDS: SODIUM CHLORIDE 0.9% FLUSH 10 ML FLUSH IV FLUSH SCH ×2 (10:01→20:36)
[2017-12-07] MEDS: predniSONE 20 MG TAB PO SCH (10:02)
[2017-12-07] MEDS: guaiFENesin E.R. 600 MG TAB PO SCH ×2 (10:02→20:34)
[2017-12-07] MEDS: DOCUSATE SODIUM 50 MG/SENNA 8.6 MG TAB PO SCH ×2 (10:02→20:35)
[2017-12-07] MEDS: HEPARIN SODIUM - SQ 10,000 UNITS/ML VIAL SQ SCH ×2 (10:03→20:37)
--- NOTE | 2017-12-07 13:24 | HHI.PR ---
Subjective Remarks Follow up COPD, pneumonia. Patient states that she coughed up thick phlegm today. Dyspnea is improving. Patient has been ambulating without oxygen. Wants to go home. Objective Vitals Vital Signs Date Time Temp Pulse Resp B/P (MAP) Pulse Ox O2 Delivery O2 Flow Rate FiO2 12/07/17 12:09 97.9 95 18 98/55 (69) 93 12/07/17 08:04 96 Nasal Cannula 3.00 12/07/17 07:58 97.9 72 18 139/90 (106) 94 12/07/17 07:00 89 12/07/17 04:31 98.3 66 17 131/68 (89) 95 12/07/17 01:12 18 12/06/17 23:24 98.2 80 17 123/72 (89) 96 12/06/17 20:22 94 Nasal Cannula 4.00 12/06/17 20:09 98.5 81 17 126/82 (97) 96 12/06/17 19:21 18 12/06/17 15:51 98.1 85 18 111/59 (76) 90 12/06/17 15:00 82 I/O 12/06/17 12/06/17 12/06/17 12/07/17 12/07/17 12/07/17 07:00 15:00 23:00 07:00 15:00 23:00 Intake Total 240 ml 2009 ml Balance 240 ml 2009 ml Intake Oral 240 ml 2010 ml # Voids 1 5 1 Result Diagram: 12/04/17 0810 12/04/17 0810 Imaging Last Impressions Head CT 12/05/17 0000 Signed Impressions: CONCLUSION: 1. Unremarkable CT scan of the brain. Chest X-Ray 12/03/17 1255 Signed Impressions: CONCLUSION: Right lower lobe infiltrate Objective Remarks GENERAL: Well-nourished, well-developed female in no acute distress. HEENT: Normocephalic, atraumatic. Pupils equal, round and reactive. Extraocular movements intact. No scleral icterus. No injection or drainage. Oropharynx is clear. Mucous membranes are moist. CARDIOVASCULAR: Regular rate and rhythm without murmurs, gallops, or rubs. RESPIRATORY: Mild scattered rhonchi. Breathing is non-labored. GASTROINTESTINAL: Abdomen soft, non-tender, nondistended. EXTREMITIES: No lower extremity edema. No calf tenderness. PSYCH: Alert and oriented x 3. Procedures None Urinary Catheter: No Vascular Central Line Catheter: No A/P Problem List: (1) PNA (pneumonia) ICD Code: J18.9 - Pneumonia, unspecified organism (2) COPD (chronic obstructive pulmonary disease) ICD Code: J44.9 - Chronic obstructive pulmonary disease, unspecified (3) Tobacco abuse ICD Code: Z72.0 - Tobacco use Assessment and Plan 1. Community-acquired pneumonia: Chest x-ray shows right lower lobe infiltrate. Continue oral Levaquin. Continue Mucinex. Incentive spirometry, Acapella, pulmonary toilet. Continue supplemental oxygen as needed. Filled home oxygen walk test yesterday. Will order repeat home oxygen walk test today as patient has been ambulating in the halls without oxygen. 2. COPD exacerbation: Continue oral steroids. Continue Symbicort. DuoNeb scheduled, albuterol as needed. Oxygen as needed. 3. Cephalgia: Chronic. Follow-up as outpatient. 4. Acute kidney injury: Likely secondary to dehydration. Resolved with IV fluids. 5. Tobacco abuse: Patient has been counseled. 6. Hyperglycemia: Secondary to steroids. A1c 4.9. No history of diabetes. 7. Ulcerative colitis: Stable. 8. DVT prophylaxis: JAYLYN [place]. Discharge Planning Plan for discharge home if patient can be weaned off oxygen. Otherwise, she would need home oxygen, which would be difficult to arrange as she is self-pay. Wesley Vila MD December 07, 2017 13:24
[2017-12-07] MEDS: PANTOPRAZOLE SOD 20 MG DELAYED RELEASE TAB PO SCH (20:35)
[2017-12-07] MEDS: IBUPROFEN 600 MG TAB PO PRN (20:36)
[2017-12-07] MEDS: LEVOFLOXACIN 750 MG TAB PO SCH (20:36)
[2017-12-07] MEDS: ACETAMINOPHEN/HYDROcodone 325 MG/5 MG TAB PO PRN (23:29)
[2017-12-08] VITALS (8 sets, daily range): BP systolic 109–132; BP diastolic 57–80; PULSE 66–90; RESP 18; TEMP 97.9–98.5; O2SAT 91–97
[2017-12-08] MEDS: RESP: ALBUTEROL 2.5 MG/IPRATROPIUM 0.5 MG NEB (SCH) NEB ×2 (07:35→11:29)
[2017-12-08] MEDS: guaiFENesin E.R. 600 MG TAB PO SCH (09:00)
[2017-12-08] MEDS: REMOVE OLD PATCH T-DERMAL SCH (09:00)
[2017-12-08] MEDS: predniSONE 20 MG TAB PO SCH (09:00)
[2017-12-08] MEDS: SODIUM CHLORIDE 0.9% FLUSH 10 ML FLUSH IV FLUSH SCH (09:01)
[2017-12-08] MEDS: HEPARIN SODIUM - SQ 10,000 UNITS/ML VIAL SQ SCH (09:01)
[2017-12-08] MEDS: DOCUSATE SODIUM 50 MG/SENNA 8.6 MG TAB PO SCH (09:02)
[2017-12-08] MEDS: BUDESONIDE-FORMOTEROL 160/4.5 MCG INHALER INH SCH (09:02)
[2017-12-08] MEDS: NICOTINE 14 MG/24 HR PATCH T-DERMAL SCH (09:02)
[2017-12-08] MEDS: ACETAMINOPHEN 325 MG TAB PO PRN (09:06)
[2017-12-08] MEDS ORDERED: Budeson-Formot 160-4.5 Mcg Inh INH (11:26)
[2017-12-08] MEDS ORDERED: ALBU1.25 NEB (11:26)
[2017-12-08] MEDS ORDERED: PRED5PAK PO (11:26)
[2017-12-08] MEDS ORDERED: LEVA750T9 PO (11:26)
--- NOTE | 2017-12-08 11:27 | HHI.DCPOC ---
Discharge Care Plan Diagnosis: (1) COPD (chronic obstructive pulmonary disease) (2) Tobacco abuse (3) Right lower lobe pneumonia (4) Acute kidney injury Goals to Promote Your Health * To prevent worsening of your condition and complications * To maintain your health at the optimal level Directions to Meet Your Goals Take your medications as prescribed Follow your dietary instruction Follow activity as directed Keep your appointments as scheduled Take your immunizations and boosters as scheduled If your symptoms worsen call your PCP, if no PCP go to Urgent Care Center or Emergency Room Smoking is Dangerous to Your Health. Avoid second hand smoke Call the 24-hour hour crisis hotline for domestic abuse at Wesley Vila MD December 08, 2017 11:27
--- NOTE | 2017-12-08 11:31 | HHI.DS ---
Discharge Summary Admission Date December 03, 2017 at 19:44 Discharge Date: December 08, 2017 Admitting Diagnosis Right Lung PNA; Dyspnea (1) PNA (pneumonia) ICD Code: J18.9 - Pneumonia, unspecified organism (2) COPD (chronic obstructive pulmonary disease) ICD Code: J44.9 - Chronic obstructive pulmonary disease, unspecified (3) Tobacco abuse ICD Code: Z72.0 - Tobacco use (4) Acute kidney injury ICD Code: N17.9 - Acute kidney failure, unspecified Procedures None Brief History - From Admission This is a 57-year-old female with a PMH of Ulcerative Colitis and Tobacco Abuse who presented to ER with complaints of SOB, wheezing and cough x4 days. Notes subjective fever/chills at home but did not take her temp. Has not been on any antibiotics or treatment for symptoms. States she's been taking cough syrup w/ no improvement. Notes productive cough w/ yellow-colored sputum. Today w/ worsening SOB and wheezing. On arrival, BP 105/59, HR 107, O2 sat 95% on RA, Afebrile. CBC unremarkable. Creatinine 1.08, previously 0.67 on 08/29/2014. CXR w/ RLL infiltrate. S/p Levaquin, Solu-Medrol and DuoNeb w/ some improvement however persistent SOB and wheezing. CBC/BMP: 12/04/17 0810 12/04/17 0810 Imaging Last Impressions Head CT 12/05/17 0000 Signed Impressions: CONCLUSION: 1. Unremarkable CT scan of the brain. Chest X-Ray 12/03/17 1255 Signed Impressions: CONCLUSION: Right lower lobe infiltrate PE at Discharge GENERAL: Well-nourished, well-developed female in no acute distress. HEENT: Normocephalic, atraumatic. Pupils equal, round and reactive. Extraocular movements intact. No scleral icterus. No injection or drainage. Oropharynx is clear. Mucous membranes are moist. CARDIOVASCULAR: Regular rate and rhythm without murmurs, gallops, or rubs. RESPIRATORY: Mild scattered rhonchi. Breathing is non-labored. GASTROINTESTINAL: Abdomen soft, non-tender, nondistended. EXTREMITIES: No lower extremity edema. No calf tenderness. PSYCH: Alert and oriented x 3. Pt update on day of discharge The patient has no complaints at this time. She wants to go home today. Shortness of breath has improved. Denies chest pain. Patient had respiratory home oxygen walk test and was found to have oxygen saturation of 92% on room air with ambulation. Hospital Course The patient was admitted for management of pneumonia, COPD. She was continued on supplemental oxygen, bronchodilators, steroids. She was started on antibiotics. She did improve clinically throughout the hospitalization. She continued to require oxygen and failed multiple home oxygen walk test. Case management was not able to arrange home oxygen, so the patient was kept in the hospital. As she continued to improve, she was weaned off the oxygen. On the day of discharge, she had an oxygen saturation of 92% on room air with ambulation and was felt to be stable for discharge home. Pt Condition on Discharge: Stable Discharge Disposition: Discharge Home Discharge Time: > 30 minutes Discharge Instructions DIET: Follow Instructions for: As Tolerated, No Restrictions Activities you can perform: Regular-No Restrictions Follow up Referrals: PCP Follow-up - 1 Week New Medications: Nebulizer (Nebulizer) 1 Mis Mis EA .XX DIRECTED for Breathing Treatment, #1 0 Refills Prednisone (21) 5 mg tab Dose Pack (Prednisone (21) 5 mg tab Dose Pack) 5 Mg Dspk 5 MG PO DIRECTED for Inflammation, #1 DSPK 0 Refills Albuterol Neb (Albuterol Neb) 1.25 Mg/3 Ml Neb 1.25 MG NEB Q4HR NEB PRN for Wheezing, SOB, #30 NEBULE 0 Refills Levofloxacin (Levaquin) 750 Mg Tablet 750 MG PO Q24H for Infection, #5 TAB 0 Refills [Budeson-Formot 160-4.5 Mcg Inh] () 60 PUFF AERO 2 PUFF INH Q12HR for COPD, #1 INHALER 0 Refills Wesley Vila MD December 08, 2017 11:31
== END 2017-12-08 16:00 | disposition home or self-care (01) ==
LOC: NEPD 12:30 → NEDA 19:44 → NEPGCP 22:07
PROVIDERS: ADMIT Family Medicine; ATTEND Family Medicine
DX: J18.1 Lobar pneumonia, unspecified organism (principal); J44.1 Chronic obstructive pulmonary disease with (acute) exacerbation; N17.9 Acute kidney failure, unspecified; R07.81 Pleurodynia; R05 Cough; H92.03 Otalgia, bilateral; D64.9 Anemia, unspecified; F32.9 Major depressive disorder, single episode, unspecified; M62.838 Other muscle spasm; F17.210 Nicotine dependence, cigarettes, uncomplicated; Z85.828 Personal history of other malignant neoplasm of skin
CPT/HCPCS: 70450; 71046; 80048; 80053; 82948; 83036; 83605; 85025; 94150; 94618; 94640; 94664; 94667; 94668; 96361; 96365; 96366; 96372; 96375; 96376; 97110; 97116; 97161; 99285; G0378; G8987; G8988; J1644; J1815; J1956; J2920; J2930; J7030; J7512